=== PATIENT | female | born 1960 | race Caucasian/White ===

== ENCOUNTER 2024-11-12 08:01 | Outpatient (AMB) | payer MEDICARE, MEDICAID, SELFPAY ==
--- NOTE | 2024-11-12 08:02 | MHC.OFFVIS ---
Intake Visit Reasons: Incontinence Intake Note: New Patient presents for initial visit for incontinence Urology Medications: none Blood Thinner:none PVR: 0ml's Jira Administrator Required: Yes Accompanied by: Unknown Allergies latex Allergy (Verified 11/12/24 08:23) Rash HPI Comments Details: Ne is a very pleasant 64-year-old Korean speaking female patient of Dr. Collins was accompanied by her son at today's office visit. She has a past medical history of she has a past medical history of fatty liver, eczema, lymphoma, constipation, neuropathy, and hyperlipidemia. She presents to the office today as a new patient for stress urinary incontinence. She reports symptoms have been present for many years however feels they are worsening. She does report a history of 5 vaginal births. She reports having followed up with her PCP and has trialed medications that she felt were not helpful. However, she does not recall the names of the medication. I was able to contact patient's pharmacy and speak with pharmacy vendor representatives that reports patient has been prescribed tolterodine, Myrbetriq, and oxybutynin. We discussed at length potential causes of stress incontinence as well as further treatment options and risks and benefits of these treatment options. In office urinalysis results reviewed with the patient today. Microscopic hematuria noted. She denies any history of smoking and or workplace chemical exposure. PVR 0 mL. We discussed obtaining retroperitoneal ultrasound for further assessment evaluation. All questions were answered. She denies urinary urgency, urinary frequency, nocturia, hematuria, dysuria, foul smelling urine, changes to urinary stream, flank pain, fever, and or chills. She otherwise offers no other issues or concerns at this time. [facility] Medical History Urinary, incontinence, stress female Fatty liver Cholelithiasis Eczema Lymphoma Constipation Neuropathy Hyperlipidemia Review of Systems Const All systems reviewed & are unremarkable except as noted in HPI and below Physical Exam Const General: cooperative, comfortable, no acute distress, well developed, alert and awake Orientation/consciousness: patient oriented x3 Limitations: no limitations HEENT Head: Yes normal to inspection, Yes normocephalic and Yes atraumatic Ears: hearing grossly normal bilaterally Eyes General: appearance normal, both eyes and all related structures Neck Neck: Yes normal visual inspection and Yes trachea midline Chest Chest palpation & inspection: normal inspection of the chest Resp Effort & Inspection: normal respiratory effort and able to speak in complete sentences Cardio Rate: regular rate GI Inspection: Yes normal to inspection General: Yes no CVA tenderness Back/Spine/Pelvis Back: no CVA tenderness Skin General skin exam: no rashes or lesions noted Neuro General: patient oriented x3 Extrem General: Yes normal to inspection Psych Appearance: grossly normal and well kempt Mental Status: mental status grossly normal Speech and movement: Normal speech and movement present and Clear speech present Affect: normal affect Attitude: cooperative Thought process: Normal thought process present Thought content: Normal thought content present Insight: Fair insight present (Psych) Judgement: Fair judgement present (Psych) Office Procedures Post Void Residual Post Residual Void Post Void Residual (PVR): 0 29612-Idwg Void Residual by ultrasound Results AMB Urinalysis, Automated UA Leukoctes 15 Weston/uL Last Edit by Barbra Gonzalez on 11/12/24 08:27 UA Nitrite Last Edit by Barbra Ferreira on 11/12/24 08:27 UA Urobilinogen 0.2 mg/dL Last Edit by Barbra Ferreira on 11/12/24 08:27 UA Protein 15 mg/dL Last Edit by Barbra Gonzalez on 11/12/24 08:27 UA pH 6.0 Last Edit by [employer] cesar Gonzalez on 11/12/24 08:27 UA Blood 80 Orly/uL Last Edit by Barbra Gonzalez on 11/12/24 08:27 UA Specific [place] 1.025 Last Edit by [employer] on 11/12/24 08:27 UA Ketone Last Edit by [employer]ul[employer] cesar Gonzalez on 11/12/24 08:27 UA Bilirubin 1 mg/dL Last Edit by [employer] on 11/12/24 08:27 UA Glucose 0 mg/dL Last Edit by [employer] on 11/12/24 08:27 Results Reviewed Results Reviewed: Laboratory Last Values Urine pH (Auto) 6.0 11/12/24 08:25 Specific [place] (Auto) 1.025 11/12/24 08:25 Urine Protein (Auto) 15 mg/dL 11/12/24 08:25 Glucose (UA)(Auto) 0 mg/dL 11/12/24 08:25 Urine Blood (Auto) 80 Roly/uL 11/12/24 08:25 Urine Bilirubin (Auto) 1 mg/dL 11/12/24 08:25 Urine Urobilinogen (Auto) 0.2 mg/dL 11/12/24 08:25 Leukocyte Esterase (Auto) 15 Weston/uL 11/12/24 08:25 Assessment & Plan Assessment & Plan (1) Stress incontinence: Code(s): N39.3 - Stress incontinence (female) (male) Category: Medical (2) Microscopic hematuria: Code(s): R31.29 - Other microscopic hematuria Category: Medical Plan In office urinalysis results reviewed with the patient today; as noted above; will send for urine cytology. PVR 0 mL We discussed at length potential causes of stress incontinence as well as further treatment options and risks and benefits of these treatment options. Will obtain retroperitoneal ultrasound for further assessment evaluation. We discussed pelvic floor exercises. Will schedule for in office urodynamics; information provided Follow-up per doctor's orders; or sooner with any issues, concerns, and or questions. Orders: Orders AMB Post Void Residual by ultrasound Today Z13.9 - Encounter for screening, unspecified AMB Urinalysis Automated Today Z13.9 - Encounter for screening, unspecified US retroperitoneal comp Today N39.3 - Stress incontinence (female) (male) Patient Instructions: The patient had an opportunity to ask questions regarding the treatment plan. All questions were answered. Physical exam, labs, and imaging were discussed and reviewed in detail. As well as risks, benefits, and discussion of treatment choices. No major barriers to understanding were identified. The patient expressed understanding and agreement with the above treatment plan. The patient was made aware they should contact our office by phone for worsening of their current condition, the appearance of new symptoms, or with any questions or concerns. Compliance is encouraged with any medications and follow up testing that is ordered. It is a privilege to be allowed the opportunity to participate in? your urological care.? Again, if you have any questions or concerns If you have any questions or concerns please do not hesitate to contact me. The office is [phone]. This note is constructed using voice recognition software. While every effort has been made to ensure accuracy rn hemo dialysis errors may have been included. Yours sincerely, KETURAH Santoro Coding Level of Care Code New Pt Level 3 (63566) Diagnoses Stress incontinence N39.3 Microscopic hematuria R31.29 CPT Codes Post Residual Void - PVR CPT Code: 86585-Dndt Void Residual by ultrasound ([id number])
== END 2024-11-12 08:43 | disposition home or self-care (01) ==
PROVIDERS: PCP Internal Medicine; Visit Provider Nurse Practitioner Family
DX: N39.3 Stress incontinence (female) (male) (principal); R31.29 Other microscopic hematuria; Z13.9 Encounter for screening, unspecified
CPT/HCPCS: 99203

== ENCOUNTER 2024-11-12 08:01 | Outpatient (REF) | payer MEDICARE, MEDICAID, SELFPAY ==
[2024-11-12 16:47] LABS: Urine Cytology See Pathology rpt
== END 2024-11-12 08:02 | disposition home or self-care (01) ==
LOC: HO.LNP 08:01
PROVIDERS: PCP Internal Medicine; Visit Provider Nurse Practitioner Family
DX: N39.3 Stress incontinence (female) (male) (principal); R31.29 Other microscopic hematuria
CPT/HCPCS: 51798; 81003; 88112; 99202

== ENCOUNTER → 2025-01-13 08:24 | Outpatient (BNVA) | payer MEDICARE, MEDICAID, SELFPAY | PROVIDERS: PCP Internal Medicine; Visit Provider Urology ==

== ENCOUNTER 2025-03-06 07:56 | Outpatient (AMB) | payer MEDICARE, MEDICAID, SELFPAY ==
--- NOTE | 2025-03-06 08:57 | A.OFFVIS_ITS ---
Intake Visit Reasons: UDS Allergies latex Allergy (Verified 11/12/24 08:23) Rash HPI Comments Details: 03/06/25--Nyla is here for urodynamics. History of Present Illness - The patient is a 65-year-old female presenting with urinary incontinence. - Urinary incontinence is triggered by activities such as washing dishes, gardening, and lifting objects. - The condition is progressively worsening, necessitating frequent pad changes. - The patient has a history of lymphoma treated with chemotherapy. - Five pregnancies may have contributed to pelvic floor weakening. UDS Interpretation: During the filling phase there was normal sensation, strong desire was noted at 190 mL. Bladder capacity: the patient felt that they were at capacity at 310 mL. Leakage was observed during cough & valsalva. There was also evidence of uninhibited detrusor contraction after filling to 113 mL. Findings consistent with ISD and a component of detrusor overactivity. EMG- Appropriate changes in the waveforms were noted through out the study. The patient has been on multiple anticholinergics with minimal improvement in her urinary incontinence symptoms. The patient is bothered more by her stress symptoms so I have discussed treatment for stress urinary incontinence at this time. I have discussed the risks of bulking injection to the proximal urethra to include but not limited to urine retention requiring a bonilla catheter, need to repeat the procedure, hematuria, and urgency. Discussion Notes I discussed with the patient the causes of urinary incontinence, including bladder spasms and weak pelvic support. We reviewed the minimally invasive treatment options, such as urethral bulking. We also discussed treatment options to manage bladder spasms if the urethral bulking treatment does not fully resolve the symptoms. The patient was informed about the expected improvement rate and the potential for additional procedures if necessary. 11/12/24--Ne is a very pleasant 64-year-old Turkish speaking female patient of Dr. Collins was accompanied by her son at today's office visit. She has a past medical history of she has a past medical history of fatty liver, eczema, lymphoma, constipation, neuropathy, and hyperlipidemia. She presents to the office today as a new patient for stress urinary incontinence. She reports symptoms have been present for many years however feels they are worsening. She does report a history of 5 vaginal births. She reports having followed up with her PCP and has trialed medications that she felt were not helpful. However, she does not recall the names of the medication. I was able to contact patient' s pharmacy and speak with pharmacy apprenticeship training representative that reports patient has been prescribed tolterodine, Myrbetriq, and oxybutynin. We discussed at length potential causes of stress incontinence as well as further treatment options and risks and benefits of these treatment options. In office urinalysis results reviewed with the patient today. Microscopic hematuria noted. She denies any history of smoking and or workplace chemical exposure. PVR 0 mL. We discussed obtaining retroperitoneal ultrasound for further assessment evaluation. All questions were answered. She denies urinary urgency, urinary frequency, nocturia, hematuria, dysuria, foul smelling urine, changes to urinary stream, flank pain, fever, and or chills. She otherwise offers no other issues or concerns at this time. [facility]ACED BY [facility] Medical History Urinary, incontinence, stress female Fatty liver Cholelithiasis Eczema Lymphoma Constipation Neuropathy Hyperlipidemia Review of Systems Const All systems reviewed & are unremarkable except as noted in HPI and below Reports no additional complaints Eyes Reports no additional complaints ENT Reports no additional complaints Card Reports no additional complaints Resp Reports no additional complaints GI Reports no additional complaints Reports as per HPI Musc Reports no additional complaints Skin/Breast Reports system reviewed and no additional complaints, except as documented Neuro Reports no additional complaints Psych Reports no additional complaints Endo Reports no additional complaints Ollie/Lymph Reports no additional complaints Aller/Immun Reports no additional complaints Office Procedures Urodynamic Studies Consent Discussed risk and benefit or proposed procedure with the patient. Information consent for procedure given to the patient. Discussed technical aspects, risks, benefits and alternatives in full. Addressed all of the patient's questions and concerns regarding the procedure. The patient demonstrated knowledge and understanding. They wish to proceed with this procedure. Preparation The patient was prepped in the usual manner. A purchasing and fiscal clerk was present and in the room. Genitalia was prepped with betadine solution in a sterile manner. Procedure Complex Uroflow Complex uroflow performed by: Rolando Noel Maximum urinary flow rate (mL/second): 13 Voiding time (seconds): 5 seconds Voided volume (mL): 38ml Residual urine (mL): 3ml Cystometrogram ? Vaginal/rectal catheter type: Vaginal First sensation at (mL): 96 mL First desire at (mL): 107 mL Strong desire to void occurred at (mL): 190 mL Strong desire detrusor pressure (cm H2O): 0.7 Maximum Capacity (mL): 310 mL Voiding Summary Voided with max detrusor pressure of (cm H2O): 86 Maximum flow rate (mL/second): 20 mL/s Voided volume (mL): ? 294ml Calculated PVR: 14 mL Stress Testing Stress Test at 192 mL: Present leak with Valsalva, Present leak with cough DO Dry: Present @ 113ml DO Wet: Absent Prep: The patient was prepped in the usual manner. A purchasing and fiscal clerk was present and in the room. Genitalia was prepped with betadine solution in a sterile manner. 57418-Xaipdkifijvxxl w/ PICK UP 24694-Yfbtgvr-Ipmelvnzoido 66224-Mjym/Urinary Muscle Study 51465-Gkofi-Puswxfsvj Pressure Test Procedure code (CPT) selection complete Office Meds nitrofurantoin monohydrate/macrocrystals 100 mg capsule Performing Provider: Rolando Noel MD Performing Location: [facility] [place] [facility] Administered by: Amanda Rogers RN on 03/06/25 08:57 Dose Route Admin Location Dispensed Lot Number Expiration Date ND Sap Trainer 100 mg PO 1 cap Results AMB Urinalysis, Automated UA Leukoctes 0 Weston/uL Last Edit by Amanda Rogers RN on 03/06/25 09:17 UA Nitrite Negative Last Edit by Amanda Rogers RN on 03/06/25 09:17 UA Urobilinogen 0 mg/dL Last Edit by Amanda Rogers RN on 03/06/25 09:17 UA Protein 15 mg/dL Last Edit by Amanda Rogers RN on 03/06/25 09:17 UA pH 6.0 Last Edit by Amanda Rogers RN on 03/06/25 09:17 UA Blood 2 Roly/uL Last Edit by Amanda Rogers RN on 03/06/25 09:17 UA Specific [place] 1.0 Last Edit by Amanda Rogers RN on 03/06/25 09:1 7 UA Ketone Negative Last Edit by Amanda Rogers RN on 03/06/25 09:17 UA Bilirubin 0 mg/dL Last Edit by Amanda Rogers RN on 03/06/25 09:17 UA Glucose 0 mg/dL Last Edit by Amanda Rogers RN on 03/06/25 09:17 Assessment & Plan Assessment & Plan (1) Stress incontinence: Code(s): N39.3 - Stress incontinence (female) (male) Category: Medical (2) Detrusor overactivity: Code(s): N32.81 - Overactive bladder Category: Medical (3) Intrinsic sphincter deficiency (ISD): Code(s): N36.42 - Intrinsic sphincter deficiency (ISD) Category: Medical Plan Schedule Bulkamid, urethral bulking procedure Orders: Orders AMB Urinalysis Automated Today Z13.9 - Encounter for screening, unspecified AMB Urodynamics Studies Today N39.3 - Stress incontinence (female) (male) Patient Instructions: The patient had an opportunity to ask questions regarding treatment plan. The patient expressed understanding and agreement with the above treatment plan. The patient is aware they should contact our office by phone for worsening of their current condition or the appearance of new symptoms. Compliance is encouraged with any medications and followup testing that is ordered. It is a privilege to be allowed the opportunity to participate in the urologic care of your patient. If you have any questions or concerns regarding treatment for the above conditions please do not hesitate to contact me. The office telephone contact is [phone]. This note is constructed in part using voice recognition software. While every effort has been made to ensure accuracy stock tracer errors may have been included. Yours sincerely, Rolando Noel MD Scribe Plan - Not visible on output: Patient was informed and verbally consented to the use of an ambient scribe for clinic note documentation during this visit. Coding Level of Care Code Est Pt Level 4 (80493) Diagnoses Stress incontinence N39.3 Detrusor overactivity N32.81 Intrinsic sphincter deficiency (ISD) N36.42 CPT Codes Urodynamic Studies - CPT: 81239-Gjyqczfndzrgea w/ PICK UP ([id number]) Urodynamic Studies - CPT: 25539-Ndnbhsd-Jibdpeltftjg ([id number]) Urodynamic Studies - CPT: 78488-Ibgf/Urinary Muscle Study ([id number]) Urodynamic Studies - CPT: 10556-Kxxyj-Ezsonvgfw Pressure Test ([id number])
== END 2025-03-06 09:24 | disposition home or self-care (01) ==
LOC: HO.HUSH 07:57
PROVIDERS: PCP Internal Medicine; Visit Provider Urology
DX: N39.3 Stress incontinence (female) (male) (principal); N32.81 Overactive bladder; N36.42 Intrinsic sphincter deficiency (ISD); Z13.9 Encounter for screening, unspecified
CPT/HCPCS: 51728; 51741; 51784; 51797; 99214

== ENCOUNTER → 2025-03-06 07:56 | Outpatient (BNVA) | payer MEDICARE, MEDICAID, SELFPAY | PROVIDERS: PCP Internal Medicine; Visit Provider Urology | DX: N39.3 Stress incontinence (female) (male) (principal); N32.81 Overactive bladder; N36.42 Intrinsic sphincter deficiency (ISD) | CPT/HCPCS: 51728; 51741; 51784; 51797; 81003; 99212 ==

== ENCOUNTER 2025-03-24 06:22 | Day surgery (SDC) | payer MEDICARE, MEDICAID, SELFPAY ==
[2025-03-20 07:52] VITALS: BMI 28.9
--- NOTE | 2025-03-23 11:48 | P.CONAN_ITS ---
Documented by User: Layla Figueroa NP 03/23/25 11:49 HPI - Anesthesia Eval Consult details Narrative: 65yo F for Cystoscopy with Bulkamid PMFSH Active Problems Active Problems: All Active Problems Intrinsic sphincter deficiency (ISD) (Acute) Detrusor overactivity (Acute) Microscopic hematuria (Acute) Stress incontinence (Acute) Past Medical History Medical History Urinary, incontinence, stress female Fatty liver Cholelithiasis Eczema Lymphoma Constipation Neuropathy Hyperlipidemia Surgical History Surgical History (Updated 03/24/25 @ 06:33 by Constance Padilla RN) H/O colonoscopy Hx of cervical spine surgery Social History Social History Patient Tobacco Use Status: Never used Tobacco Use of substances other than those prescribed or required for medical reasons: No Are you DNR?: No Advance Directives: No Advance Directives Information Provided: Yes Meds Allergies Allergy/AdvReac Type Severity Reaction Status Date / Time latex Allergy Rash Verified 03/24/25 06:42 Home Medications ?Medication ?Instructions ?Recorded ?Confirmed ?Last Taken ?Type meloxicam 15 mg tablet 15 mg PO DAILY 10/09/24 Unk nown History simvastatin 40 mg tablet mg PO 11/03/24 Unknown Hist ory Exam Height,Weight and Vital Signs: Height 5 ft 3 in Weight 73.936 kg Assessment and Plan Assessment Anesthesia Assessment: Chart Reviewed Documented by User: Jamison Atkins MD 03/24/25 07:08 PMFSH Past Medical History Medical History Urinary, incontinence, stress female Fatty liver Cholelithiasis Eczema Lymphoma Constipation Neuropathy Hyperlipidemia Functional capacity: independent ambulation Patient : No Family History Family history of problems with anesthesia: No Surgical History Surgical History (Updated 03/24/25 @ 06:33 by Constance Padilla RN) H/O colonoscopy Hx of cervical spine surgery History of Problems with Anesthesia: No Social History Social History Patient Tobacco Use Status: Never used Tobacco Use of substances other than those prescribed or required for medical reasons: No Are you DNR?: No Advance Directives: No Advance Directives Information Provided: Yes Meds Allergies Allergy/AdvReac Type Severity Reaction Status Date / Time latex Allergy Rash Verified 03/24/25 06:42 Home Medications ?Medication ?Instructions ?Recorded ?Confirmed ?Last Taken ?Type meloxicam 15 mg tablet 15 mg PO DAILY 10/09/24 Unk nown History simvastatin 40 mg tablet mg PO 11/03/24 Unknown Hist ory Exam Exam Date and Time: 03/24/25 Airway Mallampati Class: II TM Dist: >3cm Neck ROM: Full Loose/Missing/Broken Teeth: No Heart: rrr Lungs: cta Other: normal Assessment and Plan Final Anesthetic Review Family History of Problems with Anesthesia: No History of Problems with Anesthesia: No NPO: Yes ASA Class: II Final Preanesthetic Review: No Changes in Pt Med Stat, Meds/Allgs Chart Rev iewed, Consent Obtained/Reviewed and Anes Risks/Benef Reviewed Patient Risk: Low Procedure Risk: Low Anesthetic Plan Anesthetic Plan: GA Disposition: Standard PACU
[2025-03-24] VITALS (18 sets, daily range): BP systolic 112–166; BP diastolic 60–86; PULSE 51–81; RESP 15–16; TEMP 36.1–36.3; O2SAT 96–99; BMI 29.7
[2025-03-24] MEDS: Lactated Ringers 1,000 ML 100 ML IVCONT (07:06)
--- NOTE | 2025-03-24 07:23 | MHC.SHP ---
Pre-Procedural Eval Section A - 24 Hr Update-Section A only Date of Service: 03/24/25 The patient is an INPATIENT: No The patient has been examined within 24 hours of the surgical procedure. The History & Physical has been completed within 30 days and I have reviewed it.: Yes Section B - Complete if H&P > 30 days Chief Complaint: Stress incontinence (female) (male) Allergies: Allergies Allergy/AdvReac Type Severity Reaction Status Date / Time latex Allergy Rash Verified 03/24/25 06:42 Plan Diagnosis/Plan: Unchanged I have reviewed the history and physical and performed a pertinent physical examination on my patient. No changes have occurred unless specified. Cystoscopy Bulkamid, urethral bulking, I have discussed the risks of bulking injection to the proximal urethra to include but not limited to urine retention requiring a bonilla catheter, need to repeat the procedure, hematuria, and urgency. Time Spent With Patient Time: Total time managing care of this patient today ____ minutes.
--- NOTE | 2025-03-24 07:24 | P.OP_ITS ---
Operative Note Operative Note Date of Service: 03/24/25 Narrative: Preop diagnosis: Stress Urinary Incontinence, Intrinsic sphincter deficiency Postop diagnosis: Stress Urinary INcontinence, Intrinsic sphincter deficiency Procedure: Cystoscopy urethral bulking with bulkamid system at the proximal urethra Surgeon: Dr. Rolando Noel Anesthesia: General Details of procedure: The patient was brought into the operating room placed on the OR table in supine position anesthesia was administered. Antibiotics confirmed. The patient was placed in lithotomy position prepped and draped in the usual sterile fashion. Safety time-out was done. A 14 Romanian straight catheter was used to send urine for culture. 2% lidocaine jelly was inserted transurethrally 10 mL. On inserting the 22 fr scope there was resistance, the urethral was dilated, then the 22 fr 11 cm cystoscope, with 0 degree lens with the light cord in the 6 o'clock position, was passed transurethrally, the bladder was filled with sterile water to 100 mL the bladder was visualized. With the sheath at the 5 o'clock position the needle was inserted to the 1 cm kenji and 0.5 mL of gel was injected there was good bulking noted. This was repeated on the 7 o'clock position. The 2nd needle was inserted into the sheath and an injection was done at the 2 o'clock position and again at the 11 o'clock position. There was bulking of the mucosa noted with good coaptation. The patient tolerated the procedure and was taken to recovery in stable condition. Complication: none EBL: minimal (<5 mL) Drains: none
== END 2025-03-24 12:23 | disposition home or self-care (01) ==
PROVIDERS: PCP Internal Medicine; Visit Provider Urology
PROC: (CPT 51715; principal; 2025-03-24 07:30)
DX: N39.3 Stress incontinence (female) (male) (principal); N32.81 Overactive bladder; N36.42 Intrinsic sphincter deficiency (ISD); Z85.72 Personal history of non-Hodgkin lymphomas; Z92.21 Personal history of antineoplastic chemotherapy; E78.5 Hyperlipidemia, unspecified; K76.0 Fatty (change of) liver, not elsewhere classified; K80.20 Calculus of gallbladder without cholecystitis without obstruction; G62.9 Polyneuropathy, unspecified; L30.9 Dermatitis, unspecified; Z79.899 Other long term (current) drug therapy; Z91.040 Latex allergy status
CPT/HCPCS: 51715; 87086; J0690; J1885; J2003; J2704; J3010; L8606

== ENCOUNTER → 2025-03-24 06:22 | Outpatient (BNV) | payer MEDICARE, MEDICAID, SELFPAY | PROVIDERS: PCP Internal Medicine; Visit Provider Urology | DX: N39.3 Stress incontinence (female) (male) (principal); N36.42 Intrinsic sphincter deficiency (ISD) | CPT/HCPCS: 51715 ==

== ENCOUNTER → 2025-03-26 08:55 | Outpatient (BNVA) | payer MEDICARE, MEDICAID, SELFPAY | PROVIDERS: Visit Provider Urology | DX: N32.81 Overactive bladder (principal); N36.42 Intrinsic sphincter deficiency (ISD) | CPT/HCPCS: 51798 ==